=== PATIENT | female | born 1960 | race African-American/Black ===

== ENCOUNTER 2016-04-13 06:37 | Emergency (ER) | payer BC ==
[2016-04-13] MEDS ORDERED: Lorazepam 2 MG/ML VIAL ONE (06:42)
[2016-04-13] MEDS ORDERED: Meclizine HCl 25 MG TAB ONE (07:58)
--- NOTE | 2016-04-13 10:02 | CT ---
CT HEAD WITHOUT CONTRAST: Technique: Multiple axial tomograms were obtained through the head without IV enhancement. History: Nausea, vomiting. FINDINGS: Ventricles have normal size and position. There is no evidence of intracranial hemorrhage or mass. No evidence of infarct. Sinuses show mucosal thickening involving the ethmoid air cells. Mastoids are clear. IMPRESSION: No acute intracranial abnormality. POS: [facility]
== END 2016-04-13 11:35 | disposition home or self-care (01) ==
LOC: MADERS 06:37
DX: H81.399 Other peripheral vertigo, unspecified ear (principal)
CPT/HCPCS: 70450; 96374; J2060